=== PATIENT | male | born 1955 | race African-American/Black ===

== ENCOUNTER 2018-02-22 15:07 | Emergency (ER) | payer SELFPAY ==
[2018-02-22] MEDS ORDERED: ZOFRAN IV ONE (15:48)
[2018-02-22] MEDS ORDERED: DILAUDID IV ONE (15:48)
[2018-02-22 15:53] LABS: Basophils # (Auto) 0.1 K/mm3 (0.0-0.1); Basophils % (Auto) 0.8 % (0.0-1.8); Eosinophils # (Auto) 0.1 K/mm3 (0.0-0.4); Eosinophils % (Auto) 1.5 % (0.0-4.3); Hematocrit 47.7 % (35.5-45.6); Hemoglobin 16.5 gm/dl (11.8-15.2); Lymphocytes % (Auto) 30.6 % (13.4-35.0); Mean Corpuscular HGB Conc 35 % (32-34); Mean Corpuscular Hemoglobin 31 pg (28-32); Mean Corpuscular Volume 91 fl (84-94); Monocytes % (Auto) 9.8 % (0.0-7.3); Platelet Count 322 K/mm3 (140-440); Red Blood Count 5.25 M/mm3 (3.65-5.03); Red Cell Distribution Width 13.3 % (13.2-15.2)
[2018-02-22 16:07] LABS: BUN/Creatinine Ratio 23; Blood Urea Nitrogen 18 mg/dL (9-20); Calcium 9.5 mg/dL (8.4-10.2); Hemolysis Index 29
--- NOTE | 2018-02-22 16:22 | Emergency Department Report ---
- General Chief Complaint: Laceration/Recheck/Suture Stated Complaint: SEVERE CUT FACE Time Seen by Provider: 02/22/18 16:22 Source: patient, family Mode of arrival: Wheelchair Limitations: Language Barrier - History of Present Illness Initial Comments: Patient was sharpening his lumbar blade when he accidentally debilitated heated rock and a few on his face and lacerated the left side of his face and also his right thumb. Patient cannot remember if he has had tetanus shot on not. -: Sudden Time: 15:00 Location: face, other (Right Thumb) Extremity Location: Right: Hand (Right Thumb Laceration) Place: home Patient Tetanus UTD: No (Given in the ED today.) Context: accidental, sharp object use Associated Symptoms: pain - Related Data Allergies Allergy/AdvReac Type Severity Reaction Status Date / Time No Known Allergies Allergy Verified 02/22/18 15:26 ED Review of Systems ROS: Stated complaint: SEVERE CUT FACE Other details as noted in HPI Comment: All other systems reviewed and negative Constitutional: denies: chills, fever Eyes: denies: eye pain ENT: denies: ear pain Respiratory: denies: cough, orthopnea, shortness of breath Cardiovascular: denies: chest pain, palpitations, dyspnea on exertion Endocrine: no symptoms reported Gastrointestinal: denies: abdominal pain, nausea, vomiting, diarrhea, constipation Genitourinary: denies: urgency, dysuria Musculoskeletal: other (Right Thumb laceration). denies: back pain Skin: other (Left facial laceration.). denies: rash Neurological: denies: headache, weakness Psychiatric: denies: anxiety, depression Hematological/Lymphatic: denies: easy bleeding, easy bruising ED Past Medical Hx - Past Medical History Previous Medical History?: No - Social History Smoking Status: Current Every Day Smoker Substance Use Type: None ED Physical Exam - General Limitations: Language Barrier General appearance: alert, in no apparent distress - Head Head exam: Present: other (6 cm Left upper lip laceration.) - Eye Eye exam: Present: normal appearance, PERRL, EOMI Pupils: Present: normal accommodation - ENT ENT exam: Present: normal orophraynx, mucous membranes moist - Neck Neck exam: Present: normal inspection, full ROM. Absent: tenderness - Respiratory Respiratory exam: Present: normal lung sounds bilaterally. Absent: respiratory distress, wheezes, rales, rhonchi, stridor - Cardiovascular Cardiovascular Exam: Present: regular rate, normal rhythm, normal heart sounds - GI/Abdominal GI/Abdominal exam: Present: soft, normal bowel sounds. Absent: distended, tenderness, guarding, rebound, rigid - Extremities Exam Extremities exam: Present: tenderness, other (4 cm Right thumb laceration with tendon involvement.) - Back Exam Back exam: Present: normal inspection, full ROM. Absent: tenderness - Neurological Exam Neurological exam: Present: alert, oriented X3, CN II-XII intact - Psychiatric Psychiatric exam: Present: normal affect, normal mood - Skin Skin exam: Present: warm, dry, normal color ED Course Vital Signs 02/22/18 02/22/18 02/22/18 15:26 15:42 15:45 Pulse Rate 73 66 Respiratory 20 17 Rate Blood Pressure 163/84 Blood Pressure 163/84 [Left] O2 Sat by Pulse 96 97 98 Oximetry 02/22/18 02/22/18 02/22/18 16:00 16:15 16:28 Pulse Rate 74 74 Respiratory 17 19 18 Rate Blood Pressure 155/86 155/86 Blood Pressure [Left] O2 Sat by Pulse 95 96 98 Oximetry 02/22/18 02/22/18 02/22/18 16:30 16:45 17:00 Pulse Rate 73 76 79 Respiratory 19 20 16 Rate Blood Pressure 158/87 158/87 163/87 Blood Pressure [Left] O2 Sat by Pulse 96 96 95 Oximetry 02/22/18 02/22/18 17:15 17:33 Pulse Rate 76 74 Respiratory 15 15 Rate Blood Pressure 163/87 Blood Pressure 163/87 [Left] O2 Sat by Pulse 96 96 Oximetry - Consultations Consultation #1: 02/22/18 16:55 I Consult the trauma surgeon at [facility] Dr. Neela Staples. She accepted the patient for transfer to [facility] for plastic surgery and level of care. There is no plastic surgeon felt carbonizer at [facility] today. ED Medical Decision Making - Lab Data Result diagrams: 02/22/18 15:45 02/22/18 15:45 Lab Results 02/22/18 02/22/18 Range/Units 15:45 15:45 WBC 9.9 (4.5-11.0) K/mm3 RBC 5.25 H (3.65-5.03) M/mm3 Hgb 16.5 H (11.8-15.2) gm/dl Hct 47.7 H (35.5-45.6) % MCV 91 (84-94) fl MCH 31 (28-32) pg MCHC 35 H (32-34) % RDW 13.3 (13.2-15.2) % Plt Count 322 (140-440) K/mm3 Lymph % (Auto) 30.6 (13.4-35.0) % [place] % (Auto) 9.8 H (0.0-7.3) % Eos % (Auto) 1.5 (0.0-4.3) % Baso % (Auto) 0.8 (0.0-1.8) % Lymph # 3.0 (1.2-5.4) K/mm3 [place] # 1.0 H (0.0-0.8) K/mm3 Eos # 0.1 (0.0-0.4) K/mm3 Baso # 0.1 (0.0-0.1) K/mm3 Seg Neutrophils % 57.3 (40.0-70.0) % Seg Neutrophils # 5.7 (1.8-7.7) K/mm3 Sodium 140 (137-145) mmol/L Potassium 4.1 (3.6-5.0) mmol/L Chloride 104.9 (98-107) mmol/L Carbon Dioxide 24 (22-30) mmol/L Anion Gap 15 mmol/L BUN 18 (9-20) mg/dL Creatinine 0.8 (0.8-1.5) mg/dL Estimated GFR > 60 ml/min BUN/Creatinine Ratio 23 % Glucose 114 H (75-100) mg/dL Calcium 9.5 (8.4-10.2) mg/dL - Radiology Data Radiology results: report reviewed, image reviewed FINDINGS: Persistent flexion at IP joints of the little finger on all 3 images. This may reflect flexion contracture. There is a multiply comminuted complex fracture of the thumb proximal phalanx extending from the base to the distal metaphysis. Fracture fragments are moderately diastatic. There is displacement and angulation at the fracture site. Fracture lines extend into the MCP joint. No radiographically visible radiopaque foreign body. Other bones appear intact. No dislocation. IMPRESSION: Comminuted fracture thumb proximal phalanx Little finger findings may reflect flexion contracture Transcribed By: BAL Dictated By: JOSELITO LEWIS MD Electronically Authenticated By: JOSELITO LEWIS MD Signed Date/Time: 02/22/181758 DD/ 58 TD/TT: 02/22/181758 - Medical Decision Making Patient was transferred to [facility] because there is no plastic/ facial surgeon at [facility] today. The reason for the transfer is a high level of care. Critical care attestation.: If time is entered above; I have spent that time in minutes in the direct care of this critically ill patient, excluding procedure time. ED Disposition Clinical Impression: Facial laceration Qualifiers: Encounter type: initial encounter Qualified Code(s): S01.81XA - Laceration without foreign body of other part of head, initial encounter Laceration of right thumb with tendon involvement Qualifiers: Encounter type: initial encounter Qualified Code(s): S61.011A - Laceration without foreign body of right thumb without damage to nail, initial encounter; S66.921A - Laceration of unspecified muscle, fascia and tendon at wrist and hand level, right hand, initial encounter Open fracture of right thumb Qualifiers: Encounter type: initial encounter Phalanx: proximal Fracture alignment: displaced Qualified Code(s): S62.511B - Displaced fracture of proximal phalanx of right thumb, initial encounter for open fracture Disposition: DC/- [facility] IP Is pt being admited?: No Does the pt Need Aspirin: No Condition: Stable Referrals: PRIMARY CAREMD [Primary Care Provider] - 3-5 Days Time of Disposition: 16:50
[2018-02-22] MEDS ORDERED: CLEOCIN 600 MG/50 mL 600 MG/50 ML BAG IV ONE (16:38)
[2018-02-22] MEDS ORDERED: BOOSTRIX IM ONE (16:38)
[2018-02-22 17:27] VITALS: BP 163/87
--- NOTE | 2018-02-22 18:00 | XRay Report ---
FINAL REPORT EXAM: XR HAND 3+V RT HISTORY: Trauma and Laceration TECHNIQUE: 3 views of the right hand PRIORS: None. FINDINGS: Persistent flexion at IP joints of the little finger on all 3 images. This may reflect flexion contracture. There is a multiply comminuted complex fracture of the thumb proximal phalanx extending from the base to the distal metaphysis. Fracture fragments are moderately diastatic. There is displacement and angulation at the fracture site. Fracture lines extend into the MCP joint. No radiographically visible radiopaque foreign body. Other bones appear intact. No dislocation. IMPRESSION: Comminuted fracture thumb proximal phalanx Little finger findings may reflect flexion contracture
== END 2018-02-22 18:20 | disposition short-term general hospital (02) ==
LOC: ED 15:07
DX: S62.511B Displaced fracture of proximal phalanx of right thumb, initial encounter for open fracture (principal); S01.81XA Laceration without foreign body of other part of head, initial encounter; F17.200 Nicotine dependence, unspecified, uncomplicated; W26.8XXA Contact with other sharp object(s), not elsewhere classified, initial encounter; Y93.89 Activity, other specified; Y92.89 Other specified places as the place of occurrence of the external cause; Y99.8 Other external cause status
CPT/HCPCS: 36415; 73130; 80048; 85025; 86850; 86900; 86901; 90471; 90715; 96374; 96375; 99285; J1170; J2405